=== PATIENT | male | born 1960 | race African-American/Black ===

== ENCOUNTER 2018-06-20 12:15 | Emergency (ER) | payer OTHER ==
[2018-06-20 12:32] VITALS: BMI 25.0
--- NOTE | 2018-06-20 14:15 | PDOC ---
History of Present Illness - General Chief Complaint: Pain Stated Complaint: PAIN Time Seen by Provider: 06/20/18 13:38 History Source: Patient Exam Limitations: No Limitations - History of Present Illness Initial Comments: 06/20/18 14:05 57 yo M with a hx of HTN presents to the emergency department with abdominal pain in the LLQ with radiation to the RLQ for the past 2 weeks with a recent ED visit last Tuesday at [facility]. Per the patient, he states he has never had this pain before. It's sharp in nature, 9/10, comes and goes, eating relieves the pain, and has the following associative symptoms: nausea, vomiting (1x episode yesterday NBNB), and melena for the past 1 week. Per the patient, he denies hx of colonscopy and hematochezia. He received an abdomen/pelvis CT with IV that did not show an acute pathology and had relief of symptoms with GI cocktail. He denies the following: fever, chills, ears/nose/throat pain, headache, chest pain, SOB, dysuria, hematuria, leg pain/swelling, and recent travel. Endorses chronic constipation. Negative stress test and echo last year with Dr. Nunez. PMD: None Shx: None Meds: labetolol, amlodipine, and losartan Allergies: NKDA Past History - Past Medical History Allergies/Adverse Reactions: Allergies Allergy/AdvReac Type Severity Reaction Status Date / Time No Known Allergies Allergy Verified 06/20/18 12:26 Home Medications: Ambulatory Orders Amlodipine Besylate 10 mg PO DAILY 06/20/18 Labetalol HCl 300 mg PO DAILY 06/20/18 Losartan Potassium 100 mg PO DAILY 06/20/18 COPD: No HTN: Yes - Suicide/Smoking/Psychosocial Hx Smoking History: Never smoked Hx Alcohol Use: No Drug/Substance Use Hx: No Review of Systems - Review of Systems Able to Perform ROS?: Yes Is the patient limited Eritrean proficient: No Constitutional: No: Chills, Diaphoresis, Fever, Weakness HEENTM: No: Recent change in vision, Ear Pain, Nose Pain, Throat Pain, Mouth Pain Respiratory: No: Cough, Shortness of Breath, SOB with Exertion, Hemoptysis Cardiac (ROS): No: Chest Pain, Lightheadedness, Palpitations, Syncope, Chest Tightness ABD/GI: Yes: Constipated, Tarry Stools. No: Diarrhea, Rectal Bleeding : No: Burning, Dysuria, Hematuria, Urgency Musculoskeletal: No: Back Pain, Joint Pain, Neck Pain Integumentary: No: Erythema, Flushing, Lesions, Pruritus, Rash Neurological: No: Headache, Numbness, Tingling, Tremors, Ataxia, Dizziness Psychiatric: No: Change in Appetite Endocrine: No: Unexplained Weight Gain Hematologic/Lymphatic: No: Anemia *Physical Exam - Vital Signs Last Vital Signs Temp Pulse Resp BP Pulse Ox 98.2 F 79 20 122/70 100 06/20/18 12:26 06/20/18 12:26 06/20/18 12:26 06/20/18 12:06/20/18 12:26 - Physical Exam General Appearance: Yes: Nourished, Appropriately Dressed. No: Apparent Distress, Intoxicated HEENT: positive: EOMI, BEN, Normal Voice, Symmetrical, Pharynx Normal, Hearing Grossly Normal. negative: Pale Conjunctivae, Scleral Icterus (R), Scleral Icterus (L), Muffled/Hoarse voice, Pharyngeal Erythema, Tonsillar Exudate, Tonsillar Erythema, Nasal Congestion, Rhinorrhea, Excessive drooling Neck: positive: Trachea midline. negative: Tender, Lymphadenopathy (R), Lymphadenopathy (L) Respiratory/Chest: positive: Lungs Clear, Normal Breath Sounds. negative: Chest Tender, Respiratory Distress, Accessory Muscle Use, Paradoxal Breathing, Crackles, Rales, Rhonchi, Stridor, Wheezing, Hyperresonant Cardiovascular: positive: Regular Rhythm, Regular Rate, S1, S2. negative: Systolic Murmur Gastrointestinal/Abdominal: positive: Normal Bowel Sounds, Tender (RLQ tenderness mildly. ), Flat, Soft. negative: Guarding, Rebound, Hernia, Mass Rectal Exam: positive: heme negative stool, NL Prostate, normal rectal tone. negative: heme positive stool Lymphatic: negative: Adenopathy Musculoskeletal: positive: Normal Inspection. negative: CVA Tenderness, Vertebral Tenderness Extremity: positive: Normal Capillary Refill, Normal Inspection, Normal Range of Motion. negative: Tender, Swelling, Calf Tenderness, Erythema Integumentary: positive: Normal Color, Dry, Warm. negative: Jaundice, Mottled, Petechiae, Rash Neurologic: positive: client liaison II-XII NML intact, Fully Oriented, Alert, Normal Mood/ Affect, Normal Response, Motor Strength 5/5. negative: EOM Palsy, Facial Droop , Sensory Deficit Moderate Sedation - Procedure Monitoring Vital Signs: Procedure Monitoring Vital Signs Temperature 98.2 F 06/20/18 12:26 Pulse Rate 79 06/20/18 12:26 Respiratory Rate 20 06/20/18 12:26 Blood Pressure 122/70 06/20/18 12:26 O2 Sat by Pulse Oximetry (%) 100 06/20/18 12:26 ED Treatment Course - LABORATORY CBC & Chemistry Diagram: 06/20/18 14:30 06/20/18 14:30 Medical Decision Making - Medical Decision Making 57 yo M with a hx of HTN presents to the emergency department with abdominal pain in the LLQ with radiation to the RLQ for the past 2 weeks with a recent ED visit last Tuesday at [facility] vitals: Initial Vital Signs Temp Pulse Resp BP Pulse Ox 98.2 F 79 20 122/70 100 06/20/18 12:26 06/20/18 12:26 06/20/18 12:26 06/20/18 12:26 06/20/18 12:26 Work up: ddx: diverticulosis/diverticulitis vs constipation vs hernia vs UTI vs nephrolithiasis patient was recently seen in the ED at [facility]. Per the patient, they stated the CT was negative for acute pathologies. he felt better with medications while there and was discharged. will get labs and UA. Laboratory Tests 06/20/18 06/20/18 06/20/18 14:30 14:30 14:30 WBC 6.7 RBC 4.72 Hgb 12.7 Hct 38.2 MCV 80.9 MCH 26.9 MCHC 33.3 RDW 12.7 Plt Count 141 MPV 11.7 H Absolute Neuts (auto) 4.3 Neutrophils % 64.9 Lymphocytes % 27.2 Monocytes % 5.4 Eosinophils % 2.1 Basophils % 0.4 Nucleated RBC % 0 PT with INR 13.30 H INR 1.13 H PTT (Actin FS) 30.8 Sodium Potassium Chloride Carbon Dioxide Anion Gap BUN Creatinine Creat Clearance w eGFR Random Glucose Lactic Acid Calcium Total Bilirubin AST ALT Alkaline Phosphatase Creatine Kinase Creatine Kinase Index CK-MB (CK-2) Troponin I Total Protein Albumin Lipase Urine Color Urine Appearance Urine pH Ur Specific [place] Urine Protein Urine Glucose (UA) Urine Ketones Urine Blood Urine Nitrite Urine Bilirubin Urine Urobilinogen Ur Leukocyte Esterase Stool Occult Blood Negative Blood Type Antibody Screen 06/20/18 06/20/18 06/20/18 14:30 14:30 14:30 WBC RBC Hgb Hct MCV MCH MCHC RDW Plt Count MPV Absolute Neuts (auto) Neutrophils % Lymphocytes % Monocytes % Eosinophils % Basophils % Nucleated RBC % PT with INR INR PTT (Actin FS) Sodium 135 L Potassium 3.8 Chloride 100 Carbon Dioxide 28 Anion Gap 6 L BUN 14 Creatinine 1.2 Creat Clearance w eGFR > 60 Random Glucose 97 Lactic Acid 0.9 Calcium 9.1 Total Bilirubin 1.1 H AST 30 ALT 39 Alkaline Phosphatase 46 Creatine Kinase 739 H Creatine Kinase Index 0.3 CK-MB (CK-2) 2.5 Troponin I < 0.02 Total Protein 7.7 Albumin 3.8 Lipase 211 Urine Color Urine Appearance Urine pH Ur Specific [place] Urine Protein Urine Glucose (UA) Urine Ketones Urine Blood Urine Nitrite Urine Bilirubin Urine Urobilinogen Ur Leukocyte Esterase Stool Occult Blood Blood Type O POSITIVE Antibody Screen Negative 06/20/18 17:00 WBC RBC Hgb Hct MCV MCH MCHC RDW Plt Count MPV Absolute Neuts (auto) Neutrophils % Lymphocytes % Monocytes % Eosinophils % Basophils % Nucleated RBC % PT with INR INR PTT (Actin FS) Sodium Potassium Chloride Carbon Dioxide Anion Gap BUN Creatinine Creat Clearance w eGFR Random Glucose Lactic Acid Calcium Total Bilirubin AST ALT Alkaline Phosphatase Creatine Kinase Creatine Kinase Index CK-MB (CK-2) Troponin I Total Protein Albumin Lipase Urine Color Ltyellow Urine Appearance Clear Urine pH 6.0 Ur Specific [place] 1.009 L Urine Protein Negative Urine Glucose (UA) Negative Urine Ketones Negative Urine Blood Negative Urine Nitrite Negative Urine Bilirubin Negative Urine Urobilinogen Negative Ur Leukocyte Esterase Negative Stool Occult Blood Blood Type Antibody Screen UA was negative. no elevations in WBC or lactic acid. patient was given IVF, zofran, and tylenol and had significant improvement in symptoms. 06/20/18 15:20 stool not melanotic no simone blood. Verbal report from [facility] for abd pelvis CT IV contrast: labs normal. white count 5.6. hbg 12. ua clean. lipase normal. cmp normal. CT: no comparison studies. thorax normal. gallblader normal. kidneys normal. bowel normal. no appendicitis. no free air. no acute obstruction or inflammatory process in pelvis. with IV contrast. no fluid collection. no mucosal thickening. Patient was informed of these results. given the normal labs and reassuring CT from Tuesday, patient can be safely discharged with GI follow up. patient was given a GI referral and was instructed to follow up with them within the next 72 hours. patient understood the plan and agreed to it. I discussed the physical exam findings, ancillary test results, and final diagnoses with the patient. I answered all of the patients questions to their satisfaction. The patient was satisfied with the care received and felt comfortable with the discussed discharge and treatment plan and accepted it. They agreed to follow up with their primary medical physical physician and hat marker within 24-72 hours after discharge for follow up care and management. Dispo: Discharge *DC/Admit/Observation/Transfer Diagnosis at time of Disposition: Pain in the abdomen Qualifiers: Abdominal location: unspecified location Qualified Code(s): R10.9 - Unspecified abdominal pain - Discharge Dispostion Disposition: HOME Decision to Admit order: No - Referrals Referrals: [facility] [place] [facility] [place] [Provider Group] Porfirio Bundy MD [Staff Physician] - - Patient Instructions Printed Discharge Instructions: DI for Abdominal Pain-Adult Additional Instructions: you were seen in the emergency department for the evaluation of your abdominal pain, your labs were within normal limits and your urine was negative for infection. we contacted our [facility] to have your ct results which indicated no acute pathologies noted. we are referring you to a hat marker for further work up and evaluation. please follow up with them within 1 week after discharge. please return to the emergency department if you have worsening symptoms or new concerning symptoms such as fever, blood in the stool, and uncontrollable nausea and vomiting. please follow up with a primary medical doctor within 1 week after discharge for follow up care. we provided a referral to you in the discharge packet. - Post Discharge Activity Forms/Work/School Notes: Back to Work
[2018-06-20] MEDS ORDERED: SODIUM CHLORIDE 1,000 ML IV STA (14:24)
[2018-06-20] MEDS ORDERED: ACETAMINOPHEN 1000 MG/100 ML VIAL (NON FORMULARY) IVPB ONE (14:24)
[2018-06-20] MEDS ORDERED: ONDANSETRON 4 MG/2 ML VIAL IVPUSH ONE (14:24)
[2018-06-20 14:45] LABS: BASO % 0.4 % (0-2.0); EOS % 2.1 % (0-4.5); HEMATOCRIT 38.2 % (35.4-49); HEMOGLOBIN 12.7 GM/dL (11.7-16.9); LYMPH % 27.2 % (8-40); MCH 26.9 pg (25.7-33.7); MCHC 33.3 g/dl (32.0-35.9); MEAN CELL VOLUME 80.9 fl (80-96); MEAN PLT VOLUME 11.7 fl (7.5-11.1); MONO % 5.4 % (3.8-10.2); NEUT % 64.9 % (42.8-82.8); PLATELET COUNT 141 K/MM3 (134-434); RBC 4.72 M/mm3 (4.00-5.60); RDW 12.7 % (11.9-15.9); WHITE BLOOD COUNT 6.7 K/mm3 (4.0-10.0)
[2018-06-20 15:13] LABS: INR 1.13 (0.83-1.09); PROTHROMBIN TIME (PATIENT) 13.3 SEC (9.7-13.0)
[2018-06-20 15:16] LABS: ACTIVATED PTT 30.8 SECONDS (25.2-36.5)
--- NOTE | 2018-06-20 15:19 | PDOC ---
Attending Attestation - Resident Resident Name: Daniel Harrington - ED Attending Attestation I have performed the following: I have examined & evaluated the patient, The case was reviewed & discussed with the resident, I agree w/resident's findings & plan - HPI HPI: 06/20/18 15:13 57-year-old male history of hypertension presents with about 2 weeks of abd pain , described as lower abdominal, initially LLQ then RLQ, chronic low level pain with sharp exacerbations. Today, exacerbation associated with nausea/vomiting x1 , so presents for evaluation. no f/c/weight loss/hematemesis. no urinary complaints, reports dark stool but no diarrhea. never had egd or c-scope. Seen at [facility] ED two days ago, CTAP reportedly normal and discharged. presents here 2/2 exacerbation this morning. no travel/abx/sick contacts. - Physicial Exam PE: 06/20/18 15:19 vital signs normal No jaundice or pallor, moist mucosa Well-appearing seated comfortably in chair Heart is regular, lungs are clear Abdomen is soft/nontender/nondistended. Very slight left lower quadrant discomfort to palpation, no guarding or rebound. No CVA tenderness, no palpable hernias. - Medical Decision Making 06/20/18 15:19 57-year-old male with intermittent lower abdominal pain for 2 weeks, benign abdominal exam without evidence for focal infectious process. Question hernia versus constipation, less likely or vascular, well-appearing. labs, ua connect with [facility] ED regarding CTAP results from 2d ago. Unless concerning finding, no indication to repeat emergent imaging here GI cocktail if above wnl, GI referral
[2018-06-20] MEDS ORDERED: ONDANSETRON 4 MG/2 ML VIAL ONE (15:25)
[2018-06-20] MEDS ORDERED: ACETAMINOPHEN INJECTION 100 ML IVPB ONE (15:25)
[2018-06-20 15:37] LABS: ALBUMIN 3.8 g/dl (3.4-5.0); ALK PHOS 46 U/L (45-117); ANION GAP 6 MMOL/L (8-16); BILIRUBIN,TOTAL 1.1 mg/dL (0.2-1); BLOOD UREA NITROGEN 14 mg/dL (7-18); CALCIUM 9.1 mg/dL (8.5-10.1); CHLORIDE 100 mmol/L (98-107); CO2 28 mmol/L (21-32); CREATININE 1.2 mg/dL (0.55-1.3); GLUCOSE,RANDOM 97 mg/dL (74-106); LIPASE 211 U/L (73-393); POTASSIUM 3.8 mmol/L (3.5-5.1); SGOT/AST 30 U/L (15-37); SGPT/ALT 39 U/L (13-61); SODIUM 135 mmol/L (136-145); TOT PROT 7.7 g/dl (6.4-8.2)
[2018-06-20 17:31] VITALS: BP 133/72; PULSE 72; TEMP 98.4
[2018-06-20 18:01] LABS: URINE APPEARANCE CLEAR; URINE BILIRUBIN NEGATIVE (<2.0 mg/dL); URINE COLOR LTYELLOW; URINE GLUCOSE (UA) NEGATIVE (NEGATIVE); URINE KETONE NEGATIVE (NEGATIVE); URINE LEUK ESTERASE NEGATIVE (NEGATIVE); URINE NITRITE NEGATIVE (NEGATIVE); URINE PROTEIN NEGATIVE (NEGATIVE); URINE UROBILINOGEN NEGATIVE mg/dL (0.2-1.0)
== END 2018-06-20 18:27 | disposition home or self-care (01) ==
LOC: JER 12:15
PROC: 3E033GC Introduction of Other Therapeutic Substance into Peripheral Vein, Percutaneous Approach (ICD-10-PCS; principal; 2018-06-20)
PROC: 3E033NZ Introduction of Analgesics, Hypnotics, Sedatives into Peripheral Vein, Percutaneous Approach (ICD-10-PCS; 2018-06-20)
DX: R10.9 Unspecified abdominal pain (principal); I10 Essential (primary) hypertension; K59.00 Constipation, unspecified
CPT/HCPCS: 36415; 80053; 81003; 82272; 82550; 82553; 83605; 83690; 84484; 85025; 85610; 85730; 86850; 86900; 86901; 87086; 99282-25; J0131; J7030

== ENCOUNTER 2019-07-31 21:22 | Emergency (ER) | payer OTHER ==
[2019-07-31 21:41] VITALS: BP 136/82; PULSE 90; TEMP 98.1; BMI 27.3
--- NOTE | 2019-07-31 22:38 | PDOC ---
History of Present Illness - General Chief Complaint: Lethargy Stated Complaint: INSOMIA Time Seen by Provider: 07/31/19 22:13 History Source: Patient Exam Limitations: No Limitations - History of Present Illness Initial Comments: 07/31/19 22:33 Pt is a 58 y/o male who presents to the ED with complaint of not being able to sleep for the last 3 nights. The states that this happens to him every once in a while and usually goes away on its own. He denies any increased stress, chest pain, shortness of breath. He states that there is nothing in his life that is causing him stress to keep him awake. He does admit that he had his BP meds switched from losartan and hydralazine to amlodipine and hydralazine. He thought maybe his medications were causing his problems. He has not tried to take anything to help him sleep. Past History - Past Medical History Allergies/Adverse Reactions: Allergies Allergy/AdvReac Type Severity Reaction Status Date / Time No Known Allergies Allergy Verified 07/31/19 21:31 Home Medications: Ambulatory Orders Amlodipine Besylate 10 mg PO DAILY 06/20/18 Labetalol HCl 300 mg PO DAILY 06/20/18 Losartan Potassium 100 mg PO DAILY 06/20/18 COPD: No HTN: Yes - Psycho Social/Smoking Cessation Hx Smoking History: Never smoked Have you smoked in the past 12 months: No Information on smoking cessation initiated: No Hx Alcohol Use: No Drug/Substance Use Hx: No Review of Systems - Review of Systems Comments:: 07/31/19 22:37 - Review of Systems Constitutional: No: Chills, Fever, Loss of Appetite, Malaise, Weakness; Positive insomnia for 3 days HEENTM: No: Blurred Vision, Double Vision, Tinnitus, Nose Bleeding, Throat pain Respiratory: No: Cough, Shortness of Breath, Wheezing Cardiac (ROS): NO: Palpitations, Chest Pain, Edema, Irregular Heart Rate, Lightheadedness, Syncope, Chest Tightness ABD/GI: No: Constipated, Nausea, Vomiting, Abdominal cramping, no urinary complaints Musculoskeletal: No joint pain, no back pain, no muscle pain Integumentary: Yes: Flushing. No: Change in Color Neurological: No: Headache, Numbness, Tingling, Unsteady Gait, Dizziness *Physical Exam - Vital Signs Last Vital Signs Temp Pulse Resp BP Pulse Ox 98.1 F 90 18 136/82 100 07/31/19 21:29 07/31/19 21:29 07/31/19 21:29 07/31/19 21:29 07/31/19 21:29 - Physical Exam 07/31/19 22:38 - Physical Exam General Appearance: Yes: Nourished, Appropriately Dressed, No: Apparent Distress HEENT: EOMI, Hearing Grossly Normal. No Muffled/Hoarse voice Neck: Supple. No Rigidity, No Decreased range of motion Respiratory/Chest: Lungs Clear, Normal Breath Sounds. No Chest Tender, No Respiratory Distress, No Accessory Muscle Use, No Decreased Breath Sounds, No Rales/Rhonchi/Wheezing Cardiovascular: Regular Rhythm, Regular Rate, S1, S2, Gastrointestinal/Abdominal: Abdomen soft. Nontender, nondistended, no rebound/ guarding/rigidity Musculoskeletal: Normal Inspection, No: Decreased Range of Motion Extremity: Normal Capillary Refill, Normal Inspection Integumentary: Normal Color, Dry, Warm Neurologic: shell sorter II-XII NML intact, Fully Oriented, Alert, Normal Mood/Affect, Normal Response, Motor Strength 5/5 Psych: slightly flat affect, no flight of ideas, following commands appropriately and answering questions appropriately Medical Decision Making - Medical Decision Making 07/31/19 22:40 Assessment: Pt is a 58 y/o male with difficulty sleeping for the last 3 nights. Plan: I have made the patient aware that he may suffer from insomnia and this is something that he should discuss with his primary doctor. There are many therapies, both with medicine and lifestyle changes, that may help his problem. He has been made aware that the ED does not regularly prescribe these medications and this is something that his primary doctor should take care of. He should follow up with his primary doctor within 1-2 days for repeat evaluation. He understands and agrees with treatment and plan and he is stable for discharge. Discharge - Discharge Information Problems reviewed: Yes Clinical Impression/Diagnosis: Difficulty sleeping Condition: Stable Disposition: HOME - Follow up/Referral - Patient Discharge Instructions Patient Printed Discharge Instructions: Having Trouble Sleeping? Additional Instructions: Try and avoid caffeine or sugar foods several hours before bed. Be sure to see your primary doctor within 2 days for repeat evaluation and to discuss if there is any treatment for your difficulty sleeping. - Post Discharge Activity Work/Back to School Note: Back to Work
--- NOTE | 2019-07-31 22:40 | PDOC ---
*Physical Exam - Vital Signs Last Vital Signs Temp Pulse Resp BP Pulse Ox 98.1 F 90 18 136/82 100 07/31/19 21:29 07/31/19 21:29 07/31/19 21:29 07/31/19 21:29 07/31/19 21:29 Medical Decision Making - Medical Decision Making 07/31/19 22:40 Patient seen by the advanced practice provider under my supervision. Ancillary testing reviewed as necessary. I agree with plan as outlined by the advanced practice provider. Discharge - Discharge Information Problems reviewed: Yes Clinical Impression/Diagnosis: Insomnia - Follow up/Referral - Patient Discharge Instructions - Post Discharge Activity
== END 2019-07-31 23:12 | disposition home or self-care (01) ==
LOC: JER 21:22
DX: G47.00 Insomnia, unspecified (principal); I10 Essential (primary) hypertension
CPT/HCPCS: 99282-25

== ENCOUNTER 2021-03-07 22:51 | Emergency (ER) | payer OTHER ==
[2021-03-07] MEDS ORDERED: FAMOTIDINE 20 MG/50 ML IVPB 20 MG/50 ML MG IVPB ONE ×2 (23:11→23:36)
[2021-03-07] MEDS ORDERED: MAG HYDROX/AL HYDROX/SIMETH 30 ML UNIT-DOSE CUP PO ONE (23:12)
[2021-03-07 23:20] VITALS: BP 141/99; PULSE 73; BMI 27.3
[2021-03-07] MEDS ORDERED: MAG HYDROX/AL HYDROX/SIMETH 30 ML UNIT-DOSE CUP ONE (23:36)
[2021-03-07 23:47] LABS: HEMATOCRIT 38.7 % (35.4-49); MCH 26.9 pg (25.7-33.7); MCHC 33.5 g/dl (32.0-35.9); MEAN CELL VOLUME 80.4 fl (80-96); MEAN PLT VOLUME 9.8 fl (7.5-11.1); PLATELET COUNT 163 10^3/uL (134-434); RBC 4.81 M/mm3 (4.00-5.60); RDW 13.4 % (11.9-15.9); WHITE BLOOD COUNT 5.7 K/mm3 (4.0-10.0)
[2021-03-07 23:48] LABS: BASO % 0.9 % (0-2.0); EOS % 3.5 % (0-4.5); LYMPH % 40.7 % (8-40); MONO % 7.3 % (3.8-10.2); NEUT % 47.6 % (42.8-82.8)
[2021-03-08 00:32] LABS: BLOOD UREA NITROGEN 16.4 mg/dL (7-18); CALCIUM 9.1 mg/dL (8.5-10.1); CHLORIDE 105 mmol/L (98-107); CO2 31 mmol/L (21-32); CREATININE 1.2 mg/dL (0.55-1.3); GLUCOSE,RANDOM 91 mg/dL (74-106); LIPASE 308 U/L (73-393); SODIUM 139 mmol/L (136-145); TOT PROT 7.7 g/dl (6.4-8.2)
[2021-03-08 00:33] LABS: ALBUMIN 3.8 g/dl (3.4-5.0); ALK PHOS 44 U/L (45-117); BILIRUBIN,TOTAL 1.1 mg/dL (0.2-1); SGOT/AST 23 U/L (15-37); SGPT/ALT 35 U/L (13-61)
[2021-03-08 00:41] LABS: ANION GAP 3 MMOL/L (8-16)
[2021-03-08 01:13] VITALS: TEMP 98.1
[2021-03-08 04:01] LABS: URINE APPEARANCE CLEAR; URINE BILIRUBIN NEGATIVE (NEGATIVE); URINE COLOR YELLOW; URINE GLUCOSE (UA) NEGATIVE (NEGATIVE); URINE KETONE NEGATIVE (NEGATIVE)
[2021-03-08 04:02] LABS: URINE LEUK ESTERASE NEGATIVE (NEGATIVE); URINE NITRITE NEGATIVE (NEGATIVE); URINE PROTEIN NEGATIVE (NEGATIVE)
== END 2021-03-08 07:03 | disposition home or self-care (01) ==
LOC: JER 22:51
PROC: 3E033GC Introduction of Other Therapeutic Substance into Peripheral Vein, Percutaneous Approach (ICD-10-PCS; principal; 2021-03-07)
DX: R10.9 Unspecified abdominal pain (principal); R07.89 Other chest pain
CPT/HCPCS: 36415; 74177-TC; 76705-TC; 80053; 81003; 82550; 82553; 83690; 84484; 85025; 87086; 93005; 93010; 99285-25; Q9967